=== PATIENT | male | born 1990 | race Two or more races ===

== ENCOUNTER 2017-06-23 15:22 | Emergency (ER) ==
[2017-06-23 15:25] VITALS: BP 142/87; TEMP 98.1; BMI 20.9
[2017-06-23] MEDS ORDERED: LIDOCAINE HCL 1% SDV ONE (16:09)
[2017-06-23] MEDS ORDERED: BOOSTRIX IM ONE (16:19)
--- NOTE | 2017-06-23 16:20 | ED.PDOC ---
General ED Provider: Dr. EMMA MARTELL JR Chief Complaint: Finger Laceration Stated Complaint: patient states he was cutting([employer]) tire and the knife folded on him and cut left 5th finger. patient has approx 1 cm laceration. bleeding controlled. [ End ]refuses lidocaine and debridement for carbon-will allow dermabond Time Seen by Physician: 16:19 Mode of Arrival: Police Information Source: Patient, Police Exam Limitations: No limitations Nursing and Triage Documentation Reviewed and Agree: No Reviewed sepsis parameters & appropriate labs ordered?: No System Inflammatory Response Syndrome: Not Applicable Sepsis Protocol: For patient's 13 years and over: Temp is 96.8 and below OR 101 and greater Pulse >90 BPM Resp >20/minute Acutely Altered Mental Status Are patient's symptoms suggestive of a new infection, such as: -Pneumonia -Skin, Soft Tissue -Endocarditis -UTI -Bone, Joint Infection -Implantable Device -Acute Abdominal Infection -Wound Infection -Meningitis -Blood Stream Catheter Infection -Unknown System Inflammatory Response Syndrome: Not Applicable Review of Systems - Review Of Systems Constitutional: Reports: No symptoms Eyes: Reports: No symptoms Ears, Nose, Mouth, Throat: Reports: No symptoms Respiratory: Reports: No symptoms Cardiac: Reports: No symptoms GI: Reports: No symptoms : Reports: No symptoms Musculoskeletal: Reports: No symptoms Skin: Reports: Lesions Neurological: Reports: No symptoms Endocrine: Reports: No symptoms Hematologic/Lymphatic: Reports: No symptoms All Other Systems: Other Past Medical History - Past Medical History Previously Healthy: Yes Endocrine: Reports: None Cardiovascular: Reports: None Respiratory: Reports: None Hematological: Reports: None Gastrointestinal: Reports: None Genitourinary: Reports: None Neuro/Psych: Reports: None Musculoskeletal: Reports: None Cancer: Reports: None - Surgical History General Surgical History: Reports: None - Family History Family History: Reports: Unknown - Social History Smoking Status: Current every day smoker Hx Substance Use: No Alcohol Screening: None - Immunizations Tetanus Shot up to Date: No Physical Exam - Physical Exam Appearance: Well-appearing, Thin Pain Distress: Mild Musculoskeletal: Normal strength, ROM intact, No edema, No calf tenderness Skin: Warm, Dry, Normal color (NOTE LAC) Procedures - Laceration/Wound Repair No standard instances Wound Description: Linear Wound Length (cm): 1 Wound Explored: Clean, Contaminated Wound Irrigated: Yes Wound Prep: Hibiclens Wound Repaired With: Dermabond Critical Care Note - Critical Care Note Total Time (mins): 0 Course - Course Orders, Labs, Meds: Orders Category Date Time Status Diphth,Pertuss(Acell),Tet Vac [Boostrix] MEDS 06/23/17 16:19 Discontinued 0.5 ml IM .ONCE ONE Lidocaine HCl/Pf [Lidocaine HCl 1% Sdv] MEDS 06/23/17 16:09 Discontinued 5 ml .ROUTE .STK-MED ONE Medications Discontinued Medications Generic Name Dose Route Start Last Admin Trade Name Franny PRN Reason Stop Dose Admin Diphtheria/Pertussis/Tetanus Vacc 0.5 ml 06/23/17 16:19 06/23/17 16:34 Boostrix IM 06/23/17 16:20 0.5 ml .ONCE ONE Administration Vital Signs: Temp Pulse Resp BP Pulse Ox 06/23/17 15:22 98.1 F 77 20 142/87 H 99 Departure - Departure Time of Disposition: 16:55 Disposition: HOME SELF-CARE Discharge Problem: Laceration of finger Instructions: Skin Adhesive Care (ED), Finger Laceration (ED) Condition: Good Pt referred to PMD for follow-up: Yes Additional Instructions: clean and dry for three days clip edges do not pull return or to PMD if red swollen tender or draining adhesive and outer layer of skin will peel off allow adhesive to fall off over 10 to 14 days NOTE RUBBER IN WOULD MAY CAUSE SKIN DISCOLORATION(PERMANENT) SHOULD NOT CAUSE INFECTION RECHECK IF EVIDENCE OF INFECTION Allergies/Adverse Reactions: Allergies No Known Allergies Allergy (Unverified 06/23/17 15:25) Home Medications: Ambulatory Orders 1 [No Reported Medications] 06/23/17
== END 2017-06-23 17:03 | disposition home or self-care (01) ==
LOC: ED 15:22
DX: S61.217A Laceration without foreign body of left little finger without damage to nail, initial encounter (principal); W26.0XXA Contact with knife, initial encounter; F17.210 Nicotine dependence, cigarettes, uncomplicated
CPT/HCPCS: 90471; 90715; 99283